=== PATIENT | female | born 1995 | race Caucasian/White ===

== ENCOUNTER 2016-03-28 22:50 | Emergency (ER) | payer MEDICAID ==
[2016-03-28] MEDS ORDERED: OPTIRAY 350 100 ML VIAL HMH IV ONE (22:51)
[2016-03-29] MEDS ORDERED: ONDANSETRON 4 MG VIAL ONE ×2 (00:59→02:57)
[2016-03-29] MEDS ORDERED: SODIUM CHLORIDE 0.9% 1,000 ML ONE (01:00)
[2016-03-29] MEDS ORDERED: MEPERIDINE 25 MG/ML ONE ×2 (01:00→02:57)
== END 2016-03-29 04:27 | disposition home or self-care (01) ==
LOC: ER 22:50
DX: R10.9 Unspecified abdominal pain (principal)
CPT/HCPCS: 36415; 74177; 80053; 81003; 83690; 84703; 85025; 96361; 96374; 96375; 96376